=== PATIENT | male | born 1950 | race Caucasian/White ===

== ENCOUNTER 2024-08-07 09:06 | Day surgery (SDC) | payer MEDICARE, BC, SELFPAY ==
[2024-08-07] VITALS (11 sets, daily range): BP systolic 124–162; BP diastolic 70–100; PULSE 58–72; RESP 14–25; TEMP 36.6; O2SAT 95–99; BMI 34.0
[2024-08-07] MEDS: MIDAZOLAM INJ 1 MG/ML VIAL 2 ML (ASD USE ONLY) 2 MG IV (12:08)
[2024-08-07] MEDS: DiphenhydrAMINE INJ 50 MG/ML VIAL 25 MG IV (12:13)
[2024-08-07] MEDS: fentaNYL CIT INJ 50 mCg/ML AMP 2ML (ASD USE ONLY) IV (12:13)
--- NOTE | 2024-08-07 13:59 | SUR.PHASEII ---
1225: Pt received for recovery. Report from Devora NIEVES. Pt groggy, but awake. Resp even, unlabored. VS stable. Denies pain. 1250: Pt more alert. Sitting up tolerating po fluids with no difficulty swallowing and no n/v. 1314: Pt fully awake, oriented x3. Pt and stated understanding of discharge instructions. Pt discharged from [facility] in stable condition.
== END 2024-08-07 13:14 | disposition home or self-care (01) ==
PROVIDERS: PCP Family Medicine; Referring Provider Specialist; Visit Provider Specialist
PROC: (CPT 43239; principal; 2024-08-07 10:00)
PROC: 0DBE8ZX Excision of Large Intestine, Via Natural or Artificial Opening Endoscopic, Diagnostic (ICD-10-PCS; CPT 45380; 2024-08-07 10:00)
DX: K63.89 Other specified diseases of intestine (principal); K62.89 Other specified diseases of anus and rectum; K64.9 Unspecified hemorrhoids; K21.00 Gastro-esophageal reflux disease with esophagitis, without bleeding; K29.71 Gastritis, unspecified, with bleeding; K29.50 Unspecified chronic gastritis without bleeding; K31.89 Other diseases of stomach and duodenum
CPT/HCPCS: 45380; 43239; A4649; J1200; J2250; J3010

== ENCOUNTER 2024-08-24 12:19 | Emergency (ER) | payer MEDICARE, BC, SELFPAY ==
[2024-08-24 12:42] VITALS: BMI 33.0
[2024-08-24 12:43] VITALS: BP 149/82; PULSE 77; RESP 20; TEMP 36.8; O2SAT 97
--- NOTE | 2024-08-24 12:43 | XR_ITS ---
Examination: Hand, right 3 views Technique: Hand AP, oblique, lateral 3 views Date and time of exam: August 24, 2024 1243 hours INDICATIONS: Patient fell today with lacerations to the hand FINDINGS: Significant osteopenia No acute fractures No opaque foreign bodies IMPRESSION: No opaque foreign bodies
--- NOTE | 2024-08-24 12:43 | XR_ITS ---
Examination: Forearm, right, 2 views. Technique: Forearm, AP, lateral 2 views Date and time of exam: August 24, 2024 1243 hours INDICATIONS: Patient fell today with injury to the forearm, forearm pain. FINDINGS: No acute fracture No dislocation No opaque foreign body IMPRESSION: No opaque foreign body
--- NOTE | 2024-08-24 13:35 | EDNOTE_ITS ---
ED Wound/Laceration-RME/HPI General Chief Complaint: Wound/Laceration Stated Complaint: RIGHT ARM LACERATION FROM FALLING FENCE Time Seen by Provider: 08/24/24 12:33 Arrival date/time: 08/24/24 12:19 73-year-old male presents the emergency department complains of right arm pain patient reports a fence fell onto his right arm Limitations: no limitations Related Data Home Medications ?Medication ?Instructions ?Recorded ?Confirmed Losartan Potassium * (COZAAR *) 100 mg PO QDAY #0 tabs 07/11/14 08/07/24 tamsulosin 0.4 mg capsule (Flomax) 0.4 mg PO QDAY ##0 07/11/14 08/07/24 baclofen 20 mg tablet 10 mg PO HS #0 tabs 11/15/15 08/07/24 atorvastatin 40 mg tablet 40 mg PO QDAY 08/07/24 08/07/24 cholecalciferol (vitamin D3) 50 50 mcg PO QDAY 08/07/24 08/07/24 mcg (2,000 unit) tablet ibuprofen 800 mg tablet 800 mg PO TID PRN Pain (Scale 08/07/24 08/07/24 Score 4-6) oxybutynin chloride 5 mg tablet 5 mg PO BID 08/07/24 08/07/24 rivaroxaban 20 mg tablet (Xarelto) 20 mg PO QDAY 08/07/24 08/07/24 Previous Rx's ?Medication ?Instructions ?Recorded doxycycline hyclate 100 mg capsule 100 mg PO BID 7 days #14 caps 08/24/24 Allergies Allergy/AdvReac Type Severity Reaction Status Date / Time Penicillins Allergy Unknown Palpitation Verified 08/24/24 12:21 s Review of Systems Review of Systems Systems Reviewed: All systems reviewed, normal except as documented Constitutional Constitutional: Reports system reviewed and no additional complaints, except as documented, Denies fever(s) and Denies headache(s) Eyes Eyes: Reports system reviewed and no additional complaints, except as documented and Denies blurry vision ENT Ears, Nose, Mouth, and Throat: Reports system reviewed and no additional complaints, except as documented, Denies headache(s), Denies nasal congestion and Denies nasal discharge Cardiovascular Cardiovascular: Reports system reviewed and no additional complaints, except as documented, Denies chest pain and Denies dyspnea Respiratory Respiratory: Reports system reviewed and no additional complaints, except as documented, Denies chest congestion, Denies cough and Denies dyspnea Gastrointestinal Gastrointestinal: Reports system reviewed and no additional complaints, except as documented and Denies abdominal pain Integumentary/Breasts Skin/Breast: Reports system reviewed and no additional complaints, except as documented, Denies rash and Reports wounds (Forearm skin tears) Neurologic Neurologic: Reports system reviewed and no additional complaints, except as documented, Reports as per HPI and Denies headache(s) Past Medical History Past Medical History NEUROLOGIC: Negative Neurological Disorders or Seizures CARDIAC: Positive Cardiac Disorders, Hypercholesterolemia and Hypertension; Negative Congestive Heart Failure RESPIRATORY: Negative Chronic Obstructive Pulmonary Disease (COPD), Asthma, Bronchitis, Pneumonia or Sleep Apnea GASTROINTESTINAL: Positive Gastrointestinal Disorders (CONSTIPATION, DIARRHEA, DYSPEPSIA) GENITOURINARY: Positive Genitourinary Disorders, Kidney Stones and Benign Prostatic Hyperplasia; Negative Renal Disease MUSCULOSKELETAL: Positive Musculoskeletal Disorders and Arthritis ENT: Positive Cataracts (BILATERAL) ENDOCRINE: Negative Endocrine Disorders, Diabetes Mellitus Type 1 or Diabetes Mellitus Type 2 HEMATOLOGIC: Negative Blood Disorders (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) or Anemia OTHER HISTORY: Positive Radiation Therapy (SKIN CA) and Cancer; Negative Hospitalization, Autoimmune Disease, Shingles, Falls, Blood Transfusions, Blood Transfusion Reaction, Anesthesia Reactions, MRSA, Chicken Pox, Measles or Mumps Family History FAMILY HISTORY: Negative Family Respiratory Disorders, Family Cardiac Disorders, Family Gastrointestinal Problems, Family Cancer or Family Surgery Surgical History SURGICAL: Positive Tonsillectomy and Vasectomy Social History SMOKING STATUS: Never smoker ED Exam General Limitations: Present no limitations General appearance: Present alert and in no apparent distress Head Head exam: Present atraumatic Eye Eye exam: Present normal appearance, PERRL and EOMI ENT ENT exam: Present normal exam, normal oropharynx and mucous membranes moist Neck Neck exam: Present normal inspection, full ROM and trachea midline Chest Chest inspection: Present normal inspection and symmetric chest wall rise Respiratory Respiratory exam: Present normal lung sounds bilaterally Cardiovascular Cardiovascular exam: Present regular rate, normal rhythm and normal heart sounds Abdominal Exam Abdominal exam: Present soft and normal bowel sounds Extremities Exam Extremities exam: Present normal inspection and full ROM Back Exam Back exam: Present normal inspection and full ROM Neurological Exam Neurological exam: Present alert, oriented X3, CN II-XII intact, normal gait and reflexes normal; Absent motor sensory deficit Psychiatric Psychiatric exam: Present normal affect and normal mood Skin Skin exam: Present warm, dry and other (Skin tears right forearm) Course Quality Measures none Orders Category Date Time Status XR forearm RT 2V Stat Exams 08/24/24 12:43 Completed XR hand comp RT min 3V Stat Exams 08/24/24 12:43 Completed Vital Signs Vital signs: Vital Signs Temperature 98.2 F 08/24/24 12:43 Pulse Rate 77 08/24/24 12:43 Respiratory Rate 20 08/24/24 12:43 Blood Pressure 149/82 H 08/24/24 12:43 Pulse Oximetry (%) 97 08/24/24 12:43 Oxygen Delivery Method Room Air 08/24/24 12:43 O2 saturation 97% on room air within normal limits Wound / Laceration MDM Narrative MDM Narrative:: 73-year-old male presents the emergency department complains of right arm pain patient reports a fence fell onto his right arm On exam patient has tenderness right forearm patient does have full range of motion patient make a fist and move all fingers without difficulty Patient has multiple skin tears on his right arm Patient does report tetanus up-to-date Patient does report recent bone marrow transplant because of the multiple abrasions/skin tears I will treat with a course of antibiotics Patient discharged home in no distress to follow-up with primary care doctor in the next 24 to 48 hours and for any worsening symptoms to return to the ER immediately Patient data External records reviewed:: [facility] previous records Clinical information provided by:: patient Social determinants that could affect healthcare access:: none Patient has the following chronic illnesses:: None How is presenting disease/condition affected by chronic disease/condition?: no chronic disease Evaluation data The following diagnostics were reviewed and interpreted by me:: radiology exam(s) Lab and/or radiology exams considered but not ordered:: Radiology obtained Interpretation Summary: reviewed by me Medications / Prescriptions Medications or Prescriptions considered but not ordered:: Given Medication administrations:: Given Consultations Consultation(s) initiated? (list below): No Diagnosis Wound Differential Diagnosis: laceration, abrasion and avulsion of skin Most likely diagnosis given after review of the tests above:: Skin tear right arm contusion Admission Indicated Admission indicated?: not indicated Admission Request Was there a request for admission?: No Disposition Plan Disposition Plan: Discharge Discharge Attestation Discharge Attestation: The patient and all family members were given an opportunity to ask questions and understood the discharge instructions. Discharge instructions specifically effects, indications for sooner follow up or return to the emergency department, and the expected course of current diagnosis. Patient condition: Stable Discharge Plan Plan Patient Disposition: HOME (Self Care) Disposition Comment: Stable Prescriptions/Referrals Prescriptions/Med Rec: New doxycycline hyclate 100 mg capsule 100 mg PO BID 7 Days Qty: 14 0RF No Action tamsulosin [Flomax] 0.4 MG capsule,extended release 24hr 0.4 mg PO QDAY Qty: 0 Losartan Potassium * (COZAAR *) 100 MG tablet 100 mg PO QDAY Qty: 0 baclofen 20 MG tablet 10 mg PO HS Qty: 0 atorvastatin 40 mg tablet 40 mg PO QDAY ibuprofen 800 mg tablet 800 mg PO TID PRN (Reason: Pain (Scale Score 4-6)) Patient Comments: TAKE 1 TABLET BY MOUTH 3 TIMES A DAY NEEDED FOR PAIN AFTER MEALS oxybutynin chloride 5 mg tablet 5 mg PO BID Patient Comments: TAKE 1 TABLET BY MOUTH TWICE A DAY cholecalciferol (vitamin D3) 50 mcg (2,000 unit) tablet 50 mcg PO QDAY Patient Comments: take 1 tablet by mouth once daily Xarelto 20 mg tablet 20 mg PO QDAY Patient Comments: TAKE 1 TABLET BY MOUTH EVERY DAY Problem List Clinical Impression: Skin tear of right upper extremity, Contusion of arm, right Patient/Caregiver Discharge Instructions Education Materials: Bruises (Contusions) Additional Instructions: Please follow up with your primary care doctor in the next 24-48hrs for any worsening symptoms return here immediately Print Language: Polish Stand Alone Forms: Jing Award Info., Patient Portal Info Letter PA/MELLISSA Supervising Physician PA/MELLISSA Supervising Physician: Dr. Ch
== END 2024-08-24 13:59 | disposition home or self-care (01) ==
LOC: SERX 13:52
PROVIDERS: Emergency Provider Emergency Medicine; PCP Family Medicine
DX: S51.811A Laceration without foreign body of right forearm, initial encounter (principal); S61.411A Laceration without foreign body of right hand, initial encounter; W17.89XA Other fall from one level to another, initial encounter
CPT/HCPCS: 73090; 73130; 99283

== ENCOUNTER → 2024-12-14 | Outpatient (CLI) | payer MEDICARE, BC, SELFPAY ==
[2024-12-14 09:36] LABS: Basophils % (Auto) 1 % (0-2.5); Eosinophils # (Auto) 0.1 Thou/mm3 (0.0-0.5); Eosinophils % (Auto) 1 % (0-10); Hematocrit 40.3 % (41.0-53.0); Hemoglobin 13.5 g/dL (13.5-16.0); Immature Granulocytes % (Auto) 0 % (0-0); Immature Granulocytes Auto 0.02 Thou/mm3 (0.00-0.00); Lymphocytes # (Auto) 2.5 Thou/mm3 (1.0-4.8); Lymphocytes % (Auto) 43 % (10-50); Mean Corpuscular HGB Conc 33.5 g/dl (31.0-37.0); Mean Corpuscular Hemoglobin 31.2 pg (25.0-35.0); Mean Corpuscular Volume 93 fL (80-100); Monocytes # (Auto) 0.8 Thou/mm3 (0.0-0.8); Monocytes % (Auto) 13 % (0-12); Neutrophils # (Auto) 2.5 Thou/mm3 (1.8-7.7); Neutrophils % (Auto) 42 % (37-80); Nucleated Red Blood Cell % 0 /100 WBC (0); Platelet Count 166 Thou/mm3 (140-440); RDW Standard Deviation 44.9 fL (35.1-43.9); Red Blood Count 4.33 Miln/mm3 (4.50-5.90); White Blood Count 5.9 Thou/mm3 (3.8-10.6)
[2024-12-14 10:45] LABS: Alanine Aminotransferase 36 U/L (10-49); Albumin, Serum 3.9 gm/dL (3.4-4.8); Albumin/Globulin Ratio 1.8 (1.2-2.2); Alkaline Phosphatase 110 U/L (46-116); Anion Gap 7 (7-16); Aspartate Amino Transferase 32 U/L (0-34); BUN/Creatinine Ratio 20 Ratio (12-20); Bilirubin,Total 0.6 mg/dL (0.3-1.2); Blood Urea Nitrogen 18 mg/dL (9-23); Calcium 9.4 mg/dL (8.3-10.6); Calcium (Corrected) 9.5 mg/dL (8.5-10.1); Carbon Dioxide 27.8 mMol/L (20.0-31.0); Cardiac Risk Estimate 3.5 RATIO (4.0-6.7); Chloride 108 mMol/L (98-107); Cholesterol 138 mg/dL (132-200); Creatinine (Component) 0.9 mg/dL (0.6-1.3); Globulin 2.2 gm/dL (2.3-3.5); Glucose 104 mg/dL (74-106); HDL Cholesterol 40 mg/dL (40-60); LDL Cholesterol,Calculated 78 mg/dL (0-130); Osmolality,Calculated 286 (275-295); Potassium 4.5 mMol/L (3.4-5.1); Sodium 143 mMol/L (136-145); Thyroid Stimulating Hormone 2.91 uIU/mL (0.55-4.78); Total Protein 6.1 gm/dL (5.7-8.2); Triglycerides 102 mg/dL (30-150); eGFR > 60 See Note
== END | disposition home or self-care (01) ==
PROVIDERS: PCP Family Medicine; Referring Provider Family Medicine; Visit Provider Family Medicine
DX: D50.0 Iron deficiency anemia secondary to blood loss (chronic) (principal); E03.2 Hypothyroidism due to medicaments and other exogenous substances; E78.1 Pure hyperglyceridemia; Z13.1 Encounter for screening for diabetes mellitus
CPT/HCPCS: 36415; 80053; 80061; 84153; 84439; 84443; 85025

== ENCOUNTER → 2025-01-15 | Outpatient (CLI) | payer MEDICARE, BC, SELFPAY ==
--- NOTE | 2025-01-15 14:20 | XR_ITS ---
Examination: Bone densitometry Date and time of exam:January 15, 2025 1435 hours INDICATIONS: A 77-year-old male with diagnosis age related osteoporosis, diagnosis leukemia and bone marrow transplant 3 years ago Technique: Lumbar spine and hip total bone mineralization values of an calculated. Peak reference and age match control results have been displayed. Findings: Lumbar spine total bone mineralization is1.122 gm/cm2. This is 0.3 standard deviations above peak reference. This is 1. standard deviations above age-matched controls. Hip total bone mineralization is 0.811 gm/cm2 This is 1.5 standard deviations below peak reference. This is 0.6 standard deviations below age-matched controls Impression: There is normal mineralization based on lumbar spine measurements. There is osteopenia based on hip measurements
== END | disposition home or self-care (01) ==
LOC: CDIM 14:11
PROVIDERS: PCP Family Medicine; Referring Provider Family Medicine; Visit Provider Family Medicine
DX: M85.88 Other specified disorders of bone density and structure, other site (principal)
CPT/HCPCS: 77080

== ENCOUNTER → 2025-01-21 | Outpatient (CLI) | payer MEDICARE, BC, SELFPAY ==
[2025-01-21 11:40] LABS: Collection Type, Urine Clean Catch
[2025-01-21 12:07] LABS: Basophils % (Auto) 1 % (0-2.5); Eosinophils # (Auto) 0.1 Thou/mm3 (0.0-0.5); Eosinophils % (Auto) 1 % (0-10); Hematocrit 39.2 % (41.0-53.0); Immature Granulocytes % (Auto) 0 % (0-0); Immature Granulocytes Auto 0.01 Thou/mm3 (0.00-0.00); Lymphocytes # (Auto) 2.3 Thou/mm3 (1.0-4.8); Lymphocytes % (Auto) 42 % (10-50); Mean Corpuscular HGB Conc 33.2 g/dl (31.0-37.0); Mean Corpuscular Hemoglobin 31.6 pg (25.0-35.0); Mean Corpuscular Volume 95 fL (80-100); Monocytes # (Auto) 0.7 Thou/mm3 (0.0-0.8); Monocytes % (Auto) 12 % (0-12); Neutrophils # (Auto) 2.4 Thou/mm3 (1.8-7.7); Neutrophils % (Auto) 44 % (37-80); Nucleated Red Blood Cell % 0 /100 WBC (0); Platelet Count 168 Thou/mm3 (140-440); RDW Standard Deviation 46.5 fL (35.1-43.9); Red Blood Count 4.11 Miln/mm3 (4.50-5.90); White Blood Count 5.5 Thou/mm3 (3.8-10.6)
[2025-01-21 12:15] LABS: Bilirubin,Urine Negative (Negative); Blood,Urine Negative (Negative); Clarity,Urine Clear (Clear/Hazy); Color,Urine Yellow (Lt Yel-Yel); Glucose, Urine Negative (Negative); Hyaline Casts,Urine < 1 /hpf (0-1); Ketones,Urine Negative (Negative); Leukocyte Esterase,Urine Negative (Negative); Nitrite,Urine Negative (Negative); PH,Urine 6.5 (5.0-7.0); Protein,Urine Negative (Neg - Trace); RBC,Urine 6 /hpf (0-3); Specific Gravity,Urine 1.016 (1.001-1.035); Squamous Epithelial Cell,Urine < 1 /hpf (0-5); Urobilinogen,Urine Negative mg/dL (0.0-1.0); WBC,Urine < 1 /hpf (0-5)
[2025-01-21 12:36] LABS: Sed Rate (ESR) 7 mm/hr (0-20)
[2025-01-21 12:58] LABS: HIV (1&2) Antibody Rapid Non-Reactive
[2025-01-21 13:35] LABS: C-Reactive Protein < 0.5 mg/dL (0.0-0.9)
[2025-01-21 15:26] LABS: Hepatitis A Antibody IgM Non Reactive (Non React); Hepatitis B Core Antibody IgM Non Reactive (Non React); Hepatitis B Surface Antigen Non Reactive (Non React); Hepatitis C Antibody Non Reactive (Non React)
[2025-01-22 16:49] LABS: RA Screen Negative (Negative)
[2025-01-28 08:49] LABS: Sjogren's antibody (SS-A) <1.0 NEG AI (<1.0 NEGATIVE)
[2025-02-01 07:26] LABS: ANA Screen, IFA NEGATIVE (NEGATIVE); Sjogren's Antibody (SS-B) <1.0 NEG AI (<1.0 NEGATIVE)
== END | disposition home or self-care (01) ==
LOC: COPL 10:41
PROVIDERS: PCP Family Medicine; Referring Provider Family Medicine; Visit Provider Family Medicine
DX: Z01.89 Encounter for other specified special examinations (principal)
CPT/HCPCS: 36415; 80074; 81001; 85025; 85652; 86038; 86140; 86235; 86430; 86703

== ENCOUNTER → 2025-03-02 | Outpatient (CLI) | payer MEDICARE, BC, SELFPAY ==
--- NOTE | 2025-03-02 10:47 | XR_ITS ---
Examination: PA lateral chest 2 views TECHNIQUE: Upright PA lateral chest 2 views Date and time: March 02, 2025 1154 hours INDICATIONS: Coughing beginning 4 days ago. FINDINGS: Early pneumonia right base Normal heart size Left lung clear IMPRESSION: Early pneumonia right base
== END | disposition home or self-care (01) ==
PROVIDERS: PCP Family Medicine; Referring Provider Family Medicine; Visit Provider Family Medicine
DX: J18.9 Pneumonia, unspecified organism (principal)
CPT/HCPCS: 71046

== ENCOUNTER → 2025-03-29 | Outpatient (CLI) | payer MEDICARE, BC, SELFPAY ==
[2025-03-29 17:22] LABS: Basophils # (Auto) 0.0 Thou/mm3 (0.0-0.2); Basophils % (Auto) 1 % (0-2.5); Eosinophils # (Auto) 0.1 Thou/mm3 (0.0-0.5); Eosinophils % (Auto) 1 % (0-10); Hematocrit 38.7 % (41.0-53.0); Hemoglobin 13.1 g/dL (13.5-16.0); Immature Granulocytes Auto 0.01 Thou/mm3 (0.00-0.00); Lymphocytes # (Auto) 2.8 Thou/mm3 (1.0-4.8); Lymphocytes % (Auto) 42 % (10-50); Mean Corpuscular HGB Conc 33.9 g/dl (31.0-37.0); Mean Corpuscular Hemoglobin 32.3 pg (25.0-35.0); Mean Corpuscular Volume 95 fL (80-100); Monocytes # (Auto) 0.9 Thou/mm3 (0.0-0.8); Monocytes % (Auto) 13 % (0-12); Neutrophils # (Auto) 2.9 Thou/mm3 (1.8-7.7); Neutrophils % (Auto) 44 % (37-80); Nucleated Red Blood Cell # 0.00 Thou/mm3 (0.00-0.00); Nucleated Red Blood Cell % 0 /100 WBC (0); Platelet Count 173 Thou/mm3 (140-440); RDW Standard Deviation 47.0 fL (35.1-43.9); Red Blood Count 4.06 Miln/mm3 (4.50-5.90); White Blood Count 6.7 Thou/mm3 (3.8-10.6)
[2025-03-29 17:26] LABS: Free T4 (Free Thyroxine) 0.78 ng/dL (0.89-1.76); Thyroid Stimulating Hormone 3.45 uIU/mL (0.55-4.78)
== END | disposition home or self-care (01) ==
LOC: COPL 15:55
PROVIDERS: PCP Family Medicine; Referring Provider Family Medicine; Visit Provider Family Medicine
DX: D50.0 Iron deficiency anemia secondary to blood loss (chronic) (principal); E03.2 Hypothyroidism due to medicaments and other exogenous substances
CPT/HCPCS: 36415; 84439; 84443; 85025